=== PATIENT | female | born 1990 | race Caucasian/White ===

== ENCOUNTER → 2017-08-14 | Outpatient (CLI) | payer OTHER ==
[~2017-08-14] MED LIST: CLIN30GE15 TP; NITR-105 PO; PHEN100T27 PO; TRET20GE2 TOP
== END ==
LOC: LAB 11:44
PROVIDERS: ATTEND Nurse Practitioner Primary Care
DX: R39.9 Unspecified symptoms and signs involving the genitourinary system (principal); B96.20 Unspecified Escherichia coli [E. coli] as the cause of diseases classified elsewhere
CPT/HCPCS: 87077; 87088; 87186